=== PATIENT | male | born 1975 | race Caucasian/White ===

== ENCOUNTER 2018-01-02 07:00 | Day surgery (SDC) | payer OTHER ==
[~2018-01-02] VITALS: Ht 180.3 cm; Wt 93.0 kg
[2018-01-02] MEDS ORDERED: BACLOFEN10 MG PO (07:05)
[2018-01-02] MEDS ORDERED: ULTRAM50 MG PO (07:06)
--- NOTE | 2018-01-02 11:11 | NUR ---
01/02/18 1111 Tuyet Arevalo 1051 PT ARRIVED IN PACU NON-RESPONSIVE WITH ORAL AIRWAY IN PLACE. JAW THRUST USED TO KEEP AIRWAY OPEN. TRANSPORT GUARDS AT BEDSIDE. ICE TO R HAND AND ELEVATED ON PILLOW.
[2018-01-02] MEDS ORDERED: NORCO 5-325 TA1 EACH PO (11:24)
--- NOTE | 2018-01-02 11:37 | NUR ---
COFFEE AND ICED WATER GIVEN. OFFICERS @ BS.
--- NOTE | 2018-01-02 13:05 | NUR ---
PT UP TO BR X 2 AND IS UNABLE TO VOID. PT REPORTS DIFFICULTY VOIDING AFTER SURGERY IN THE PAST. ORDER FOR STRAIGHT CATH RECEIVED AND PLAN OF CARE RELAYED TO THE PATIENT. PATIENT REQUESTS AN INDWELLING KRAUSE CATHETER GIVEN HIS PAST EXPERIENCE GETTING CATHETERIZED MULTIPLE TIMES AFTER SURGERY. NEW ORDER FOR INDWELLING CATHETER RECEIVED. PATIENT IS CATHETERIZED WITH A 16 MAORI KRAUSE, USING LIDOCAINE LUBRICANT AND HE TOLERATES THE CATHETERIZATION FAIR. PATIENT DOES REPORT "NOW I NEED PAIN MEDICINE" AFTER THE KRAUSE IS PLACED. 700 ML CLEAR YELLOW URINE DRAINED FROM HIS KRAUSE BAG. REPORT CALLED TO KALE SANTIAGO AT [facility] AND HER QUESTIONS ARE ANSWERED. PATIENT DRESSES HIMSELF IN PRECENCE OF OFFICERS AND TOLERATES THAT WELL.
--- NOTE | 2018-01-03 08:27 | OR ---
[facility] [address], [place] [address] Signed DATE OF OPERATION: 01/02/2018 SURGEON: Richard French MD PREOPERATIVE DIAGNOSES: Radial collateral ligament rupture and subluxation of the right MCP joint of the thumb. POSTOPERATIVE DIAGNOSES: Radial collateral ligament rupture and subluxation of the right MCP joint of the thumb. PROCEDURES: Reduction of subluxed MCP joint and reconstruction of the radial collateral ligament. ANESTHESIA: General. SPECIMENS AND COMPLICATIONS: There were no specimens or complications. TOURNIQUET TIME: About 40 minutes. WHAT WAS DONE: The patient was taken to the operating room. After anesthesia was induced and airway secured, the patient's right upper extremity was positioned, prepped and draped in a routine sterile fashion. A chevron incision was made centered over the MCP joint on the lateral side. Skin was divided sharply. Subcutaneous tissue was bluntly spread. Dorsal cutaneous nerves and veins were identified and gently retracted. We then made a longitudinal incision at the dorsal aspect of the remnants of the radial collateral ligament. The remnants of the radial collateral ligament and all the scar tissue were then gently elevated off the base of the proximal phalanx. We then freshened the scar tissue a little bit. A small rongeur was then used to scarify the bone over the base of the proximal phalanx. The additional soft tissue was then removed. We then placed a single 2.4 mm PushLock after drilling a 2 mm hole. We held the joint in a reduced position and fixed it with a single 1.25 mm K-wire. With this reduction, we were then able to use the sutures in the PushLock to advance and secure the radial collateral ligament to its new base. Some of the redundant tissue was then gently excised with a 15-blade. We then used additional sutures of 2-0 FiberWire to reinforce and augment the repair. The wound was gently irrigated and closed in a standard fashion. A sterile dressing was applied and a radial gutter splint was placed. The patient was awakened Electronically Signed By: RICHARD FRENCH MD 01/03/18 0827 PATIENT NAME: ROMAN HERR OPERATIVE REPORT DATE OF : 71 REPORT #: [id number] PHYSICIAN: RICHARD FRENCH MD PCP: NO PRIMARY CARE PHYSICIAN REPORT IS CONFIDENTIAL AND NOT TO BE RELEASED WITHOUT AUTHORIZATION [address] [place], [place] [address] Signed and taken to the recovery room where he arrived in stable condition. Counts were correct and antibiotic protocols were followed. Richard French MD WFB/MODL /[id number] Copies: ~ Electronically Signed By: RICHARD FRENCH MD 01/03/18 0827 PATIENT NAME: ROMAN HERR OPERATIVE REPORT DATE OF : 71 REPORT #: [id number] PHYSICIAN: RICHARD FRENCH MD PCP: NO PRIMARY CARE PHYSICIAN REPORT IS CONFIDENTIAL AND NOT TO BE RELEASED WITHOUT AUTHORIZATION
== END 2018-01-02 13:05 | disposition home or self-care (01) ==
LOC: DS 07:00
PROVIDERS: Orthopaedic Surgery
PROC: 0MQ70ZZ Repair Right Hand Bursa and Ligament, Open Approach (ICD-10-PCS; 2018-01-02)
PROC: 0RSU04Z Reposition Right Metacarpophalangeal Joint with Internal Fixation Device, Open Approach (ICD-10-PCS; principal; 2018-01-02 09:15)
DX: S53.21XA Traumatic rupture of right radial collateral ligament, initial encounter (principal); S63.111A Subluxation of metacarpophalangeal joint of right thumb, initial encounter; X58.XXXA Exposure to other specified factors, initial encounter; Z79.891 Long term (current) use of opiate analgesic; Z79.899 Other long term (current) drug therapy
CPT/HCPCS: 01830; 64417; 76942; C1713; J0690; J1100; J2250; J2405; J2704; J2795; J3010; J7120

== ENCOUNTER 2020-01-07 17:48 | Emergency (ER) | payer OTHER ==
[~2020-01-07] VITALS: Ht 180.3 cm; Wt 81.7 kg
[~2020-01-07 17:48] MED LIST: BACLOFEN10 MG PO; NORCO 5-325 TA1 EACH PO; ULTRAM50 MG PO
[2020-01-07] MEDS ORDERED: LAMICTAL200 MG PO (22:35)
== END 2020-01-07 23:44 | disposition home or self-care (01) ==
LOC: ED 17:48
DX: G89.18 Other acute postprocedural pain (principal); H57.12 Ocular pain, left eye; Z88.0 Allergy status to penicillin; Z88.6 Allergy status to analgesic agent; Z79.899 Other long term (current) drug therapy
CPT/HCPCS: 99283